=== PATIENT | male | born 1995 | race American Indian/Alaskan Native ===

== ENCOUNTER 2018-12-07 14:13 | Emergency (ER) | payer SELFPAY ==
[2018-12-07 14:19] VITALS: BP 99/62
[2018-12-07] MEDS ORDERED: XYLOCAINE 1% 20 mL INFILTRATI ONE (14:28)
[2018-12-07] MEDS ORDERED: LET TOPICAL TP ONE (14:28)
[2018-12-07] MEDS ORDERED: NACL 0.9% IR ONE (14:28)
[2018-12-07] MEDS ORDERED: ANCEF IM ONE (14:28)
[2018-12-07] MEDS ORDERED: NORCO 5/325 PO ONE (14:28)
--- NOTE | 2018-12-07 14:30 | Emergency Department Report ---
ED Laceration HPI - HPI Chief Complaint: Extremity Injury, Upper Stated Complaint: (L) HAND CUT Time Seen by Provider: 12/07/18 14:26 Occurred When: Today Location: Upper Extremity Severity: mild Tetanus Status: Not up to Date Laceration Symptoms: No Foreign Body Sensation, No Numbness, No Weakness Other History: Patient is a pleasant 22-year-old who comes into the ER with a laceration of his left hand. He was working in the yard and has lacerated his second and third finger with a chainsaw. Bleeding is controlled. He is neurovascularly intact. He has stable vital signs on admission to the ER. ED Review of Systems ROS: Stated complaint: (L) HAND CUT Other details as noted in HPI Comment: All other systems reviewed and negative ED Past Medical Hx - Past Medical History Previous Medical History?: No - Surgical History Past Surgical History?: No - Social History Smoking Status: Never Smoker Substance Use Type: None - Medications Home Medications: Home Medications Medication Instructions Recorded Confirmed Last Taken Type Clindamycin [Clindamycin CAP] 300 mg PO Q8H #21 cap 12/07/18 Unknown Rx Laceration Physical Exam - Exam General: Vital signs noted. No distress. Alert and acting appropriately. Laceration Location: Upper Extremity Full Body Front + Back: 1 - area involved Laceration Exam: Yes Normal Distal CMS, No Foreign Body, No Exposed Tendon, Vessel, or Nerve, No Tendon Injury ED Course Vital Signs 12/07/18 14:17 Temperature 98.0 F Pulse Rate 78 Respiratory 18 Rate Blood Pressure 99/62 O2 Sat by Pulse 100 Oximetry - Reevaluation(s) Reevaluation #1: superficial lacs x 3 cleaned, repaired and bandaged pt has radial and ulnar pulses before and after procedure ulnar, radial and medial nerve intact rapid cap refill - Laceration /Wound Repair palm left hand Wound Location: upper extremity Wound Length (cm): 1 Wound's Depth, Shape: superficial Wound Explored: no foreign body removed Irrigated w/ Saline (ccs): 50 Betadine Prep?: Yes Anesthesia: 1% Lidocaine Volume Anesthetic (ccs): 1 Wound Debrided: minimal Wound Repaired With: sutures Suture Size/Type: 4:0 Number of Sutures: 2 Layer Closure?: No Sterile Dressing Applied?: Yes Progress: tolerated well middle finger Wound Location: upper extremity Wound Length (cm): 1 Wound's Depth, Shape: superficial Wound Explored: no foreign body removed Irrigated w/ Saline (ccs): 100 Betadine Prep?: Yes Anesthesia: 1% Lidocaine Volume Anesthetic (ccs): 5 Wound Debrided: minimal Wound Repaired With: sutures Suture Size/Type: 4:0 Number of Sutures: 2 Layer Closure?: No Sterile Dressing Applied?: Yes Progress: tolerated well index finger Wound Location: upper extremity Irrigated w/ Saline (ccs): 2 Betadine Prep?: Yes Anesthesia: 1% Lidocaine Volume Anesthetic (ccs): 4 Wound Debrided: minimal Wound Repaired With: sutures Suture Size/Type: 4:0 Number of Sutures: 4 Layer Closure?: No Sterile Dressing Applied?: Yes Progress: tolerated well - Nerve Block Consent Obtained: verbal consent Time Out Performed: Yes Local Anesthetic Used: Lidocaine 1% Amount of anesthesia used: 4 Side: left Nerve Blocks: digital, other (2/3 finger) Procedure Successful: Yes Complications: none Patient Tolerated Procedure: well ED Medical Decision Making - Radiology Data Radiology results: report reviewed, image reviewed - Medical Decision Making Vital Signs 12/07/18 12/07/18 14:17 15:05 Temperature 98.0 F Pulse Rate 78 Respiratory 18 18 Rate Blood Pressure 99/62 O2 Sat by Pulse 100 Oximetry xray noted medicated for pain antibiotics given IV tdap updated wound care provided per procedure section pt and family educated on dc plan of care; including wound care. on dc pt is neurovasc intact with full neuro/sensory/motor function of the left hand. Critical care attestation.: If time is entered above; I have spent that time in minutes in the direct care of this critically ill patient, excluding procedure time. ED Disposition Clinical Impression: Laceration Disposition: DC-01 TO HOME OR SELFCARE Is pt being admited?: No Does the pt Need Aspirin: No Condition: Stable Instructions: Laceration (ED) Additional Instructions: DIET TOLERATED MEDS ORDERED TODAY IN ER FOLLOW INSTRUCTIONS ON THE BOTTLE FOLLOW UP PCP WITHIN 48 HOURS TO ENSURE YOU ARE GETTING BETTER ACTIVITY TOLERATED MOTRIN OR TYLENOL FOR PAIN OR FEVER RETURN TO THE ER FOR WORSENING SYMPTOMS NOT RELIEVED BY YOUR MEDICATIONS. Prescriptions: Clindamycin [Clindamycin CAP] 300 mg PO Q8H #21 cap Referrals: [facility] [Outside] - 3-5 Days Time of Disposition: 16:43
[2018-12-07] MEDS ORDERED: TRIPLE ANTIBIOTIC TP ONE ×2 (16:43→16:45)
--- NOTE | 2018-12-07 16:45 | XRay Report ---
PROCEDURE: XR HAND 3+V LT TECHNIQUE: Frontal, oblique and lateral radiographs of the left hand were performed. HISTORY: LAC COMPARISONS: None. FINDINGS: No fracture. No dislocation. Normal mineralization. There is bandage material overlying the proximal aspect of the left second finger. Soft tissue swelli ng is seen in this region. No definite retained radiopaque foreign body. IMPRESSION: Soft tissue swelling of the left second finger without definite retained radiopaque foreign body. Ove rlying bandage material somewhat limits evaluation of this area. This document is electronically signed by Hannah Tenorio., December 07 2018 04:43:33 PM ET
== END 2018-12-07 17:02 | disposition home or self-care (01) ==
LOC: ED 14:13
DX: S61.412A Laceration without foreign body of left hand, initial encounter (principal); Z88.2 Allergy status to sulfonamides; X58.XXXA Exposure to other specified factors, initial encounter; Y93.89 Activity, other specified; Y92.89 Other specified places as the place of occurrence of the external cause; Y99.8 Other external cause status
CPT/HCPCS: 73130; 96372; 99283; J0690; A6250